=== PATIENT | male | born 1980 | race Caucasian/White ===

== ENCOUNTER 2025-01-28 14:24 | Emergency (ER) | payer OTHER ==
[2025-01-28] MEDS: Cyclobenzaprine 10 MG Tab PO ONE (15:02)
[2025-01-28] MEDS: Ketorolac 30 MG/ML SDV IM ONE (15:04)
== END 2025-01-28 17:09 | disposition home or self-care (01) ==
LOC: MW.ED 14:24
DX: S33.5XXA Sprain of ligaments of lumbar spine, initial encounter (principal); S80.01XA Contusion of right knee, initial encounter; S40.011A Contusion of right shoulder, initial encounter; Z79.899 Other long term (current) drug therapy; V69.9XXA Occupant (driver) (passenger) of heavy transport vehicle injured in unspecified traffic accident, initial encounter
CPT/HCPCS: 72100; 73030; 73562; 96372; 99283; A9270; J1885; 99282